=== PATIENT | female | born 1985 | race Caucasian/White ===

== ENCOUNTER 2017-10-01 07:41 | Outpatient (CLI) | payer BC ==
--- NOTE | 2017-10-01 09:40 | MRI ---
MRI LUMBAR SPINE NONCONTRAST: Date: 10/01/17 HISTORY: Back pain with left leg radiculopathy and quadricep weakness. FINDINGS: Conus medullaris has a normal appearance. Hemangioma is apparent within the T12 vertebral body. Verte bral body heights and alignment are maintained. There is desiccation of the lowest two intervertebral discs where discogenic end plate changes in the bone marrow are most pronounced. T12-L1, L1-2, L2-3, and L3-4: Mild osteophytosis. Central canal and neural foramina are patent. L4-5: Very mild posterior disc bulge. Osteophytosis of the facets. Thecal sac and neural foramina remain pa tent. L5-S1: Mild posterior disc bulge is present. Thecal sac is patent. Osteophytosis of each facet. Moderate shauna ateral foraminal stenoses, right greater than left. IMPRESSION: Degenerative changes most pronounced at the lumbosacral junction with moderate stenoses of the neural foramina. No focal disc herniation or nerve root compression are apparent. POS: HUMBERTO
== END 2017-10-01 07:42 | disposition home or self-care (01) ==
LOC: TBSIIMAG 07:41
PROVIDERS: ATTEND Orthopaedic Surgery
DX: M79.605 Pain in left leg (principal); M62.81 Muscle weakness (generalized); M48.061 Spinal stenosis, lumbar region without neurogenic claudication; M47.897 Other spondylosis, lumbosacral region; M99.83 Other biomechanical lesions of lumbar region
CPT/HCPCS: 72148

== ENCOUNTER 2019-03-01 14:59 | Outpatient (CLI) | payer BC ==
--- NOTE | 2019-03-01 15:30 | CT ---
CT Stone Protocol 03/01/2019 12:00 AM HISTORY: Bilateral flank pain for one month. Greater on the left. History of renal calculi. COMPARISON: 01/12/2013 Technique: Multiple contiguous axial CT images are obtained through the abdomen and pelvis without IV contrast. Coronal reformats are provided. FINDINGS: This examination is limited for the evaluation of solid organs and vascular structures due to the lac k of intravenous contrast. Lower Chest: Minimal dependent bibasilar atelectasis. Abdomen: Liver: Diminished attenuation related to diffuse fatty infiltration. Calcified granuloma is seen in t he peripheral aspect anterior segment right hepatic lobe. Previously seen subcentimeter hypodense lesion right hepatic lobe is not visualized on this study. Gallbladder: Within normal limits for CT imaging. Pancreas: Grossly normal nonenhanced CT appearance. Spleen: Grossly normal nonenhanced CT appearance. Adrenals: Grossly normal nonenhanced CT appearance. Kidneys: There is a punctate nonobstructing calculus seen in the inferior pole left kidney. No additi onal renal calculi are seen bilaterally, and there is no hydronephrosis. There is focal area of mild scarring involving midportion right kidney. Previously noted right perinephric inflammatory jules ges as well as nephrostomy catheter and proximal ureteral calculi are no longer visualized. Ureters: No ureteral calculus is seen.. Pelvis: Urinary bladder: within normal limits. Reproductive Organs: No pelvic masses. Lymph Nodes: No enlarged lymph nodes. Bowel: Normal caliber. Appendix: The appendix is normal in caliber. Peritoneum: No free fluid, free air, or fluid collection. Retroperitoneum: within normal limits. Vessels: Abdominal aorta is normal in caliber.. Abdominal Wall: within normal limits. Bones: Degenerative changes are seen at the lumbosacral junction. IMPRESSION: 1. Single punctate nonobstructing inferior pole left renal calculus. No additional renal or ureteral calculi are seen bilaterally, and there is no hydronephrosis. 2. Diffuse fatty infiltration of the liver.
== END 2019-03-01 15:00 | disposition home or self-care (01) ==
LOC: BICCT 14:59
PROVIDERS: ATTEND Urology
DX: N20.0 Calculus of kidney (principal); R10.9 Unspecified abdominal pain; K76.0 Fatty (change of) liver, not elsewhere classified
CPT/HCPCS: 74176